=== PATIENT | female | born 1980 | race Hispanic/Latino ===

== ENCOUNTER 2018-07-16 09:37 | Emergency (ER) | payer BC ==
[~2018-07-16] VITALS: Ht 162.6 cm; Wt 98.4 kg
[2018-07-16] MEDS ORDERED: ONDANSETRON HCL INJ 2 MG/ML VIAL IV STA (09:50)
[2018-07-16] MEDS ORDERED: FAMOTIDINE 20 MG/2 ML VIAL IV STA (09:50)
[2018-07-16] MEDS ORDERED: LOPERAMIDE HCL 2 MG CAP PO ONE (10:00)
[2018-07-16] MEDS ORDERED: SODIUM CHLORIDE 0.9% 1000ML 2,000 ML IV ONE (10:00)
[2018-07-16 10:37] LABS: BASOPHILS % 0.1 % (0.0-1.0); EOSINOPHILS # (AUTO) 0.1 (0.0-0.4); EOSINOPHILS % 0.8 % (0.0-6.0); HEMATOCRIT 44.4 % (34.2-44.1); HEMOGLOBIN 14.9 g/dL (12.0-16.0); LYMPHOCYTES # (AUTO) 0.3 (1.0-3.2); LYMPHOCYTES % 3.6 % (18.0-39.1); MEAN CORPUSCULAR HEMOGLOBIN 29.4 pg (28-32); MEAN CORPUSCULAR HGB CONC 33.6 g/dL (31-35); MEAN CORPUSCULAR VOLUME 87.6 fL (81-99); MONOCYTES # (AUTO) 0.4 (0.2-0.8); MONOCYTES % 4.2 % (4.4-11.3); NEUTROPHILS # (AUTO) 8.2 (2.1-6.9); PLATELET COUNT 247 x10e3/uL (140-360); RED BLOOD COUNT 5.07 x10e6/uL (3.6-5.1); RED CELL DISTRIBUTION WIDTH 13.2 % (11.7-14.4)
[2018-07-16 11:10] LABS: ALANINE AMINOTRANSFERASE 61 IU/L (0-55); ALBUMIN 4.2 g/dL (3.5-5.0); ALBUMIN/GLOBULIN RATIO 1.2 (0.8-2.0); ALKALINE PHOSPHATASE 139 IU/L (40-150); ANION GAP 14.9 mmol/L (8-16); BLOOD UREA NITROGEN 12 mg/dL (7-26); BUN/CREATININE RATIO 12 (6-25); CARBON DIOXIDE 18 mmol/L (22-29); CHLORIDE 109 mmol/L (98-107); EST GLOMERULAR FILTRATION RATE > 60 ML/MIN (60-); GLUCOSE 113 mg/dL (74-118); LIPASE 24 U/L (8-78); POTASSIUM 3.9 mmol/L (3.5-5.1); SODIUM 138 mmol/L (136-145)
--- NOTE | 2018-07-16 11:19 | NUR ---
VERBAL REPORT GIVEN TO YSABEL DIAZ.
[2018-07-16 11:32] LABS: CALCIUM 9.2 mg/dL (8.4-10.2)
[2018-07-16] MEDS ORDERED: KETOROLAC TROMETHAMINE 30 MG/ML VIAL IV STA (12:16)
[2018-07-16 13:48] LABS: CLARITY,URINE TURBID (CLEAR); COLOR,URINE YELLOW (YELLOW)
[2018-07-16 13:49] LABS: BILIRUBIN,URINE NEGATIVE (NEGATIVE); KETONES,URINE NEGATIVE (NEGATIVE); LEUKOCYTE ESTERASE ,URINE TRACE (NEGATIVE); NITRITE,URINE NEGATIVE (NEGATIVE); PROTEIN,URINE DIPSTICK TRACE (NEGATIVE); RBC,URINE 0-5 /HPF (0-5); URINE UROBILINOGEN 0.2 mg/dL (0.2 - 1); WBC,URINE (MAN) 0-5 /HPF (0-5)
[2018-07-16 13:50] LABS: AMORPHOUS SEDIMENT,URINE MANY (FEW); BACTERIA,URINE MODERATE /HPF; EPITHELIAL CELLS,URINE MODERATE /LPF
[2018-07-16 14:39] LABS: PREGNANCY TEST, URINE NEGATIVE (NEGATIVE)
--- NOTE | 2018-07-16 15:47 | Diagnostic Imaging Report ---
EXAM: Abdomen 2 Views INDICATION: ^abdominal pain, N/V/D ^[id number] ^[id number] COMPARISON: None FINDINGS: Nonobstructive bowel gas pattern. No signs of pneumoperitoneum. No calcification overlying renal shadows. No acute osseous abnormality. IMPRESSION: 1. Nonobstructive bowel gas pattern. Signed by: Dr. Mateo Willoughby MD on 07/16/2018 3:44 PM
== END 2018-07-16 17:36 | disposition left against medical advice (07) ==
LOC: ER 09:37
DX: R11.10 Vomiting, unspecified (principal)
CPT/HCPCS: 36415; 74018; 80053; 81001; 81025; 83690; 85025; 87400; J1885; J2405; J7030